=== PATIENT | male | born 1985 | race Two or more races ===

== ENCOUNTER 2018-10-28 04:04 | Emergency (ER) | payer OTHER ==
[~2018-10-28] VITALS: Ht 167.6 cm; Wt 108.9 kg
[2018-10-28 04:22] VITALS: BP 141/98
[2018-10-28] MEDS ORDERED: CYCL10TA2 PO (04:33)
[2018-10-28] MEDS ORDERED: DICL50TA2 PO (04:33)
--- NOTE | 2018-10-28 04:34 | PHYS DOC ---
Past Medical History Past Medical History: No Pertinent History Past Surgical History: Appendectomy Alcohol Use: None Drug Use: None Adult General Chief Complaint Chief Complaint: LOWER BACK PAIN OR INJURY HPI HPI Patient is a 33 year old [f__sex] who presents with [] Review of Systems Review of Systems Constitutional: Denies fever or chills [] Eyes: Denies change in visual acuity, redness, or eye pain [] HENT: Denies nasal congestion or sore throat [] Respiratory: Denies cough or shortness of breath [] Cardiovascular: No additional information not addressed in HPI [] GI: Denies abdominal pain, nausea, vomiting, bloody stools or diarrhea [] : Denies dysuria or hematuria [] Musculoskeletal: Denies back pain or joint pain [] Integument: Denies rash or skin lesions [] Neurologic: Denies headache, focal weakness or sensory changes [] Endocrine: Denies polyuria or polydipsia [] All other systems were reviewed and found to be within normal limits, except as documented in this note. Current Medications Current Medications Current Medications Medications (Trade) Dose Ordered Sig/Maria Guadalupe Start Time Stop Time Status Last Admin Dose Admin Ketorolac Tromethamine (Toradol Im) 60 mg 1X ONCE 10/28/18 04:30 10/28/18 04:31 UNV Allergies Allergies Allergies Coded Allergies Type Severity Reaction Last Updated Verified No Known Drug Allergies 09/25/15 No Physical Exam Physical Exam Constitutional: Well developed, well nourished, no acute distress, non-toxic appearance. [] HENT: Normocephalic, atraumatic, bilateral external ears normal, oropharynx moist, no oral exudates, nose normal. [] Eyes: PERRLA, EOMI, conjunctiva normal, no discharge. [] Neck: Normal range of motion, no tenderness, supple, no stridor. [] Cardiovascular:Heart rate regular rhythm, no murmur [] Lungs & Thorax: Bilateral breath sounds clear to auscultation [] Abdomen: Bowel sounds normal, soft, no tenderness, no masses, no pulsatile masses. [] Skin: Warm, dry, no erythema, no rash. [] Back: No tenderness, no CVA tenderness. [] Extremities: No tenderness, no cyanosis, no clubbing, ROM intact, no edema. [] Neurologic: Alert and oriented X 3, normal motor function, normal sensory function, no focal deficits noted. [] Psychologic: Affect normal, judgement normal, mood normal. [] EKG EKG [] Radiology/Procedures Radiology/Procedures [] Course & Med Decision Making Course & Med Decision Making Pertinent Labs and Imaging studies reviewed. (See chart for details) [] Dragon Disclaimer Dragon Disclaimer This electronic medical record was generated, in whole or in part, using a voice recognition dictation system. Departure Departure Impression: Primary Impression: Low back pain Disposition: HOME, SELF-CARE Condition: STABLE Referrals: NO PCP (PCP) Patient Instructions: Back Exercises, [id number], Back Injury Prevention, Back Pain, Adult, [id number] Additional Instructions: Take medications as prescribed Motrin/Tylenol as needed Return to the ER with worsening pain, numbness/tingling down the legs, bowel or bladder dysfunction Scripts Cyclobenzaprine Hcl (CYCLOBENZAPRINE HCL) 10 Mg Tablet 1 TAB PO BID, #21 TAB Prov: RAVEN SALAS MD 10/28/18 Diclofenac Potassium (DICLOFENAC POTASSIUM) 50 Mg Tablet 1 TAB PO BID for 5 Days, #10 TAB Prov: RAVEN SALAS MD 10/28/18 Problem Qualifiers Primary Impression: Low back pain Chronicity: acute Back pain laterality: left Sciatica presence: without sciatica Qualified Codes: M54.5 - Low back pain RAVEN ASLAS MD Oct 28, 2018 04:34
[2018-10-28] MEDS ORDERED: KETOROLAC 60 MG/2 ML VIAL. IM ONE (05:00)
--- NOTE | 2018-10-28 05:14 | PHYS DOC ---
Past Medical History Past Medical History: No Pertinent History Past Surgical History: No Surgical History, Appendectomy Alcohol Use: None Drug Use: None Adult General Chief Complaint Chief Complaint: LOWER BACK PAIN OR INJURY HPI HPI 33yo obese male presents to the ER with complaints of back pain that started 3 days ago with progressive worsening. 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 Patient states initially started in the low back as an ache and now more with muscle type spasm. He denies numbness or tingling down his legs, denies bowel or bladder dysfunction. Patient denies perineal numbness. ROS as discussed above, otherwise unremarkable on 10 pt review Review of Systems Review of Systems See above All other systems were reviewed and found to be within normal limits, except as documented in this note. Current Medications Current Medications Current Medications Medications (Trade) Dose Ordered Sig/Maria Guadalupe Start Time Stop Time Status Last Admin Dose Admin Ketorolac Tromethamine (Toradol Im) 60 mg 1X ONCE 10/28/18 05:00 10/28/18 05:01 DC 10/28/18 05:02 60 MG Allergies Allergies Allergies Coded Allergies Type Severity Reaction Last Updated Verified No Known Drug Allergies 09/25/15 No Physical Exam Physical Exam Constitutional: Well developed, well nourished, no acute distress, non-toxic appearance. [] HENT: Normocephalic, atraumatic, bilateral external ears normal, oropharynx moist, no oral exudates, nose normal. [] Cardiovascular:Heart rate regular rhythm, no murmur [] Lungs & Thorax: Bilateral breath sounds clear to auscultation [] Abdomen: Bowel sounds normal, soft, no tenderness, no masses, no pulsatile masses. [] Skin: Warm, dry, no erythema, no rash. [] Back: TTP along the L/S and paraspinos muscle on the left, negative SLR on exam, equal strength to bilateral lower ext, normal reflex Extremities: No tenderness, no edema. [] Neurologic: Alert and oriented X 3, no focal deficits noted. [] Psychologic: Affect normal, judgement normal, mood normal. [] Current Patient Data Vital Signs Vital Signs Date Time Temp Pulse Resp B/P (MAP) Pulse Ox O2 Delivery O2 Flow Rate FiO2 10/28/18 04:22 98.8 104 20 141/98 (112) 98 Room Air 98.8 EKG EKG [] Radiology/Procedures Radiology/Procedures [facility] [address] [place], [place] [id number] IMAGING REPORT Signed PATIENT: SANDOR GEE ACCOUNT: [id number] : 1985 LOCATION: ER AGE: 33 SEX: M EXAM STATUS: REG ER ORD. PHYSICIAN: RAVEN ASLAS MD REASON: back pain, no known injury PROCEDURE: LUMBAR SPINE 2-3V Lumbar spine x-rays 3 views HISTORY: Back pain. FINDINGS: Lumbar vertebral body height and alignment intact. No fracture of the lumbar spine. Moderate disc narrowing posteriorly at L5-S1 with endplate spurring. IMPRESSION: No acute osseous injury. Sequela of lower lumbar disc disease. Electronically signed by: Spencer Zapata MD (10/28/2018 5:15 AM) [facility] DICTATED and SIGNED BY: SPENCER ZAPATA MD DATE: 10/28/18 0515 [] Course & Med Decision Making Course & Med Decision Making Pertinent Labs and Imaging studies reviewed. (See chart for details) [] 33yo obese male presents to the ER with complaints of back pain that started 3 days ago with progressive worsening. 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 Patient states initially started in the low back as an ache and now more with muscle type spasm. He denies numbness or tingling down his legs, denies bowel or bl adder dysfunction. Patient denies perineal numbness. Imaging reviewed, no evidence of acute osseous injury. Toradol 60mg IM x 1. recommend follow up as outpatient with PCP. Anti-inflammatory rx provided upon discharge. Return precautions provided. Back exercises provided. Discussed dc with patient. Dragon Disclaimer Dragon Disclaimer This electronic medical record was generated, in whole or in part, using a voice recognition dictation system. Departure Departure Impression: Primary Impression: Low back pain Disposition: HOME, SELF-CARE Condition: STABLE Referrals: NO PCP (PCP) Patient Instructions: Back Exercises, [id number], Back Pain, Adult, [id number], Back Injury Prevention Additional Instructions: Take medications as prescribed Motrin/Tylenol as needed Return to the ER with worsening pain, numbness/tingling down the legs, bowel or bladder dysfunction Scripts Cyclobenzaprine Hcl (CYCLOBENZAPRINE HCL) 10 Mg Tablet 1 TAB PO BID, #21 TAB Prov: RAVEN SALAS MD 10/28/18 Diclofenac Potassium (DICLOFENAC POTASSIUM) 50 Mg Tablet 1 TAB PO BID for 5 Days, #10 TAB Prov: RAVEN SALAS MD 10/28/18 Problem Qualifiers Primary Impression: Low back pain Chronicity: acute Back pain laterality: left Sciatica presence: without sciatica Qualified Codes: M54.5 - Low back pain RAVEN SALAS MD Oct 28, 2018 05:14
--- NOTE | 2018-10-28 05:18 | RAD ---
Lumbar spine x-rays 3 views HISTORY: Back pain. FINDINGS: Lumbar vertebral body height and alignment intact. No fracture of the lumbar spine. Moderate disc narrowing posteriorly at L5-S1 with endplate spurring. IMPRESSION: No acute osseous injury. Sequela of lower lumbar disc disease. Electronically signed by: Jesse Zapata MD (10/28/2018 5:15 AM) [id number]
== END 2018-10-28 05:21 | disposition home or self-care (01) ==
LOC: ER 04:04
DX: M54.5 Low back pain (principal); Z90.89 Acquired absence of other organs
CPT/HCPCS: 72100; 96372; 99284; J1885